=== PATIENT | male | born 1980 | race Two or more races ===

== ENCOUNTER 2021-03-05 09:49 | Emergency (ER) | payer SELFPAY ==
[~2021-03-05] VITALS: Ht 175.3 cm; Wt 86.0 kg
[2021-03-05 10:11] VITALS: BP 122/78
[2021-03-05] MEDS ORDERED: IV NORMAL SALINE 1000ML BAG 1,000 ML IV ONE (11:00)
[2021-03-05] MEDS ORDERED: DIPH,PERTUSS(ACELL),TET VAC/PF 0.5 ML SYRINGE. VAX IM ONE (11:00)
[2021-03-05] MEDS ORDERED: diphenhydrAMINE 50 MG/ML VIAL IVP ONE (11:00)
[2021-03-05] MEDS ORDERED: FAMOTIDINE 20 MG TABLET. PO ONE (11:00)
[2021-03-05] MEDS ORDERED: methylPREDNISolone SOD SUCC PF 125 MG/2 ML VIAL. IV ONE (11:00)
[2021-03-05 12:12] LABS: BASO % 0 % (0-3); EOS # 0.1 x10^3/uL (0.0-0.7); EOS % 1 % (0-3); HEMATOCRIT 43.6 % (39.0-53.0); HEMOGLOBIN 15.3 g/dL (13.0-17.5); LYMPH # 1.9 x10^3/uL (1.0-4.8); LYMPH % 25 % (24-48); MEAN CORPUSCULAR HEMOGLOBIN 31 pg (25-35); MEAN CORPUSCULAR HGB CONC 35 g/dL (31-37); MEAN CORPUSCULAR VOLUME 90 fL (79-100); MONO # 0.7 x10^3/uL (0.0-1.1); MONO % 10 % (0-9); NEUT # 4.9 x10^3/uL (1.8-7.7); NEUT % 64 % (31-73); PLATELET COUNT 197 x10^3/uL (140-400); RED BLOOD COUNT 4.87 x10^6/uL (4.30-5.70); RED CELL DISTRIBUTION WIDTH 12.7 % (11.5-14.5); WHITE BLOOD COUNT 7.6 x10^3/uL (4.0-11.0)
[2021-03-05 12:13] LABS: BILIRUBIN,URINE NEGATIVE (NEG); CLARITY,URINE CLEAR; COLOR,URINE YELLOW; NITRITE,URINE NEGATIVE (NEG); PROTEIN,URINE NEGATIVE (NEG-TRACE)
[2021-03-05 12:21] LABS: CALCIUM 9.2 mg/dL (8.5-10.1); CREATININE 0.9 mg/dL (0.7-1.3); GFR 93.5
[2021-03-05 12:30] LABS: BACTERIA,URINE 0 /HPF (0-FEW); RBC,URINE 0 /HPF (0-2); WBC,URINE 0 /HPF (0-4)
[2021-03-05] MEDS ORDERED: DIPH50CA PO (13:06)
[2021-03-05] MEDS ORDERED: METH4TAB2 PO (13:06)
[2021-03-05] MEDS ORDERED: FAMO-63 PO (13:06)
--- NOTE | 2021-03-05 13:07 | PHYS DOC ---
Past Medical History Past Surgical History: No Surgical History General Adult EDM: Chief Complaint: INSECT BITE HPI: HPI: Patient is a 40 year old male presents to the emergency department complaining of a bee sting to his right forearm while working outside of his home yesterday at approximately 9 AM. Patient states he seen the bee landed on his arm which stung him reporting it was very large but does not know what type. Patient reports it swelled overnight, has been taking Tylenol for the pain. Has not taken any other medications. Patient reports placing Neosporin over the sting site. Patient did not notice a stinger in his arm. Patient reports when he woke up this morning he noticed swelling around the sting site with distal swelling to his hand. Reports a 4 out of 10 pain, states his hand feels stiff but has not lost any sensation. Patient denies fever chills, denies shortness of breath, nausea, vomiting, diarrhea or constipation. Patient denies chest pains. Patient denies any swelling of his face lips or tongue. Patient denies any visual disturbances, diaphoretic episodes. Patient denies any rashes of his skin. Patient states the sting site did turn red. Patient reports that it does itch. Patient reports his last tetanus immunization was greater than 5 years ago. Patient denies any allergies to medications, does not take any prescription medications at home, has not had any surgeries. Patient denies any other physical complaints or physical concerns. Review of Systems: Review of Systems: 14 body systems of review of systems have been reviewed. See HPI for pertinent positives and negative responses, otherwise all other systems are negative, nonpertinent or noncontributory. Constitutional: Negative except as outlined in HPI above. Skin: Negative except as outlined in HPI above. Eyes: Negative except as outlined in HPI above. HENT: Negative except as outlined in HPI above. Respiratory: Negative except as outlined in HPI above. Cardiovascular: Negative except as outlined in HPI above. GI: Negative except as outlined in HPI above. : Negative except as outlined in HPI above. Musculoskeletal: Negative except as outlined in HPI above. Integument: Negative except as outlined in HPI above. Neurologic: Negative except as outlined in HPI above. Endocrine: Negative except as outlined in HPI above. Lymphatic: Negative except as outlined in HPI above. Psychiatric: Negative except as outlined in HPI above. Heart Score: C/O Chest Pain: No Risk Factors: Risk Factors: DM, Current or recent (<one month) smoker, HTN, HLP, family history of CAD, obesity. Risk Scores: Score 0 - 3: 2.5% MACE over next 6 weeks - Discharge Home Score 4 - 6: 20.3% MACE over next 6 weeks - Admit for Clinical Observation Score 7 - 10: 72.7% MACE over next 6 weeks - Early Invasive Strategies Current Medications: Current Medications Medications (Trade) Dose Ordered Sig/Nora Start Time Stop Time Status Last Admin Dose Admin Diphenhydramine HCl (Benadryl) 25 mg 1X ONCE 03/05/21 11:00 03/05/21 11:29 DC 03/05/21 11:46 25 MG Diphtheria/ Tetanus/Acell Pertussis (ADACEL TDap SYRINGE) 0.5 ml ONCE ONCE 03/05/21 11:00 03/05/21 11:29 DC 03/05/21 11:48 0.5 ML Famotidine (Pepcid) 20 mg 1X ONCE 03/05/21 11:00 03/05/21 11:29 DC 03/05/21 11:47 20 MG Methylprednisolone Sodium Succinate (SOLU-Medrol 125MG VIAL) 125 mg 1X ONCE 03/05/21 11:00 03/05/21 11:29 DC 03/05/21 11:46 125 MG Sodium Chloride 1,000 ml @ 1,000 mls/hr 1X ONCE 03/05/21 11:00 03/05/21 11:59 DC 03/05/21 11:48 1,000 MLS/HR Allergies: Allergies: Allergies Coded Allergies Type Severity Reaction Last Updated Verified No Known Drug Allergies 03/05/21 No Physical Exam: PE: Constitutional: Well developed, well nourished, no acute distress, non-toxic appearance. 40-year-old male in no apparent distress. HENT: Normocephalic, atraumatic. No drooling, no trismus, patient speaking in normal voice tones, no angioedema present, no swelling of the oropharynx, no laryngeal edema. Moist mucous membranes. Eyes: Conjunctiva normal, no discharge. Neck: Normal range of motion, no stridor. Cardiovascular: No cyanosis appreciated, distal cap refill less than 2 seconds. Lungs & Thorax: Patient is in no respiratory distress, no audible adventitious lung sounds appreciated. Lung sounds clear to auscultate all lung gallardo. Abdomen: Nontender, no abnormalities noted. Skin: Warm, dry, no erythema, no rash. See extremity note for focused skin examination Back: No tenderness, no deformities. Extremities: No tenderness, no cyanosis, no clubbing, ROM intact, no edema. Except for right upper extremity distal third of dorsal aspect forearm skin surface has a 1/2 cm area of purpuric maculopapular palpable lesion, skin is intact, edematous swelling around the erythema to the dorsal aspect of forearm only with swelling to dorsal aspect hand, no swelling of the digits, full AR OM/PROM of right elbow, wrist, and digits, cap refill less than 2 seconds, 2+ radial and brachial pulse of the right upper extremity. No stinger identified at sting site. No orifice reaction appreciated, no myalgia or joint edema appreciated, no axillary lymphadenopathy appreciated. No loss of sensation around reported sting site for distal to sting site. Neurologic: Alert and oriented X 3, normal motor function, normal sensory function, no focal deficits noted. Psychologic: Affect normal, judgement normal, mood normal. Current Patient Data: Labs: Laboratory Tests Test 03/05/21 11:37 03/05/21 11:43 Urine Collection Type Unknown Urine Color Yellow Urine Clarity Clear Urine pH 6.0 (<5.0-8.0) Urine Specific [place] >=1.030 (1.000-1.030) Urine Protein Negative mg/dL (NEG-TRACE) Urine Glucose (UA) Negative mg/dL (NEG) Urine Ketones (Stick) Negative mg/dL (NEG) Urine Blood Negative (NEG) Urine Nitrite Negative (NEG) Urine Bilirubin Negative (NEG) Urine Urobilinogen Dipstick 1.0 mg/dL (0.2 mg/dL) Urine Leukocyte Esterase Negative (NEG) Urine RBC 0 /HPF (0-2) Urine WBC 0 /HPF (0-4) Urine Bacteria 0 /HPF (0-FEW) Urine Mucus Marked /LPF White Blood Count 7.6 x10^3/uL (4.0-11.0) Red Blood Count 4.87 x10^6/uL (4.30-5.70) Hemoglobin 15.3 g/dL (13.0-17.5) Hematocrit 43.6 % (39.0-53.0) Mean Corpuscular Volume 90 fL (79-100) Mean Corpuscular Hemoglobin 31 pg (25-35) Mean Corpuscular Hemoglobin Concent 35 g/dL (31-37) Red Cell Distribution Width 12.7 % (11.5-14.5) Platelet Count 197 x10^3/uL (140-400) Neutrophils (%) (Auto) 64 % (31-73) Lymphocytes (%) (Auto) 25 % (24-48) Monocytes (%) (Auto) 10 % (0-9) H Eosinophils (%) (Auto) 1 % (0-3) Basophils (%) (Auto) 0 % (0-3) Neutrophils # (Auto) 4.9 x10^3/uL (1.8-7.7) Lymphocytes # (Auto) 1.9 x10^3/uL (1.0-4.8) Monocytes # (Auto) 0.7 x10^3/uL (0.0-1.1) Eosinophils # (Auto) 0.1 x10^3/uL (0.0-0.7) Basophils # (Auto) 0.0 x10^3/uL (0.0-0.2) Sodium Level 139 mmol/L (136-145) Potassium Level 4.0 mmol/L (3.5-5.1) Chloride Level 104 mmol/L (98-107) Carbon Dioxide Level 28 mmol/L (21-32) Anion Gap 7 (6-14) Blood Urea Nitrogen 15 mg/dL (8-26) Creatinine 0.9 mg/dL (0.7-1.3) Estimated GFR (Cockcroft-Gault) 93.5 Glucose Level 109 mg/dL (70-99) H Calcium Level 9.2 mg/dL (8.5-10.1) Laboratory Tests 03/05/21 11:43 Laboratory Tests 03/05/21 11:43 Vital Signs: Vital Signs Date Time Temp Pulse Resp B/P (MAP) Pulse Ox O2 Delivery O2 Flow Rate FiO2 03/05/21 10:11 98.1 70 18 122/78 97 Room Air 98.1 EKG: EKG: [] Radiology/Procedures: Radiology/Procedures: [] Course & Med Decision Making: Course & Med Decision Making Pertinent Labs and Imaging studies reviewed. (See chart for details) 40-year-old male, vital signs reviewed, presents to the emergency department for a painful itching swelling area after being stung by a bee to his right forearm. Physical examination consistent with patient's explanation of events, there are no signs of anaphylaxis. The patient's tetanus immunization was greater than 5 years, will bring up-to-date today with Adacel Tdap. Will start saline lock, 1 L normal saline, IV Benadryl, Pepcid, 125 mg Solu-Medrol, cardiorespiratory monitoring, will reexamine after period of time. After period of time, reevaluation of the patient, patient reports pain relief, states the area on his arm where he was stung no longer itches, patient is hemodynamically intact, no apparent distress, no signs or symptoms of anaphylaxis. No angioedema of the lips face or oral cavity. Patient is speaking in normal voice tones, maintains a 99 to 100% oxygen saturation, is in no respiratory distress. Discussed with patient home care of bee stings, continue to take Benadryl and Pepcid as directed, may use [id number] Tylenol or Motrin for pain pain, prescription for Medrol Dosepak. Return to ER precautions or concerns. Discussed with the patient all findings and diagnostic testing as well as the need to follow-up with their primary care provider for further evaluation and treatment or return to the ED if any new or worsening symptoms. Strict return precautions were also discussed at length, the patient voiced understanding and agreement with the discharge planning. The patient was nontoxic in appearance, in no apparent distress, and hemodynamically stable at the time of disposition. Willem Disclaimer: Willem Disclaimer: This electronic medical record was generated, in whole or in part, using a voice recognition dictation system. Departure Departure Impression: Primary Impression: Bee sting reaction Qualified Codes: T63.444A - Toxic effect of venom of bees, undetermined, initial encounter Disposition: HOME / SELF CARE / HOMELESS Condition: GOOD Referrals: NO PCP (PCP) Patient Instructions: Bee, Wasp, or Hornet Sting Additional Instructions: You were seen today in the emergency department for a bee sting to your right forearm. You were treated today in the emergency department with intravenous Benadryl and Pepcid for itching and swelling, a steroid called Solu-Medrol to help stop any further reaction, a liter of normal saline, your tetanus immunization was brought up-to-date today in the emergency department with a medication called Adacel Tdap, please update your immunization records. Your blood lab work and urinalysis did not show any concerning signs of infection or dehydration. I am prescribing you Benadryl and Pepcid along with a oral steroid, please take as directed. The swelling of your arm may take approximately 2 weeks or so to go back to normal, this is a normal reaction to a localized swelling from a bee sting such as yours. Please return immediately to the emergency department for sudden onset of shortness of breath, throat swelling, facial or lip swelling or tongue swelling, worsening symptoms or other concerns. Follow-up with your primary care doctor for reevaluation of your bee sting. Please keep the area clean and dry with soap and water, you may place [id number] antibiotic ointment as needed. Thank you for visiting our Emergency Department. It was a pleasure taking care of you today in the emergency department and we appreciate you trusting us with your care. If any additional problems come up don't hesitate to return to visit us. Please follow up with your primary care provider so they can plan additional care if needed and know about the problem that you had. If symptoms worsen come back to the Emergency Department. Any concerning symptoms that start such as chest pain, shortness of air, weakness or numbness on one side of the body, running high fevers or any other concerning symptoms return to the ER. EMERGENCY DEPARTMENT GENERAL DISCHARGE INSTRUCTIONS Thank you for coming to [facility] Emergency Department (ED) today and trusting us with you care. We trust that you had a positive experience in our Emergency Department. If you wish to speak to the department management, you may call the Director at [phone]. YOUR FOLLOW UP INSTRUCTIONS ARE FOLLOWS: 1. Do you have a private Doctor? If you do not have a private doctor, please ask for a resource list of physicians or clinics that may be able to assist you with follow up care. 2. The Emergency Physicain has interpreted your x-rays. The X-Ray specialist will also review them. If there is a change in the findings, you will be notified in 48 hours when at all possible. 3. A lab test or culture has been done, your results will be reviewed and you will be notified if you need a change in treatment. ADDITIONAL INSTRUCTIONS AND INFORMATION: 1. Your care today has been supervised by a physician who is specially trained in emergency care. Many problems require more than one evaluation for a complete diagnosis and treatment. We recommend that you schedule your follow up appointment as recommended to ensure complete treatment of you illness or injury. If you are unable to obtain follow up care and continue to have a problem, or if your condition worsens, we recommend that you return to the ED. 2. We are not able to safely determine your condition over the phone nor are we able to give sound medical advice over the phone. For these safety reasons, if you call for medical advice we will ask you to come to the ED for further evaluation. 3. If you have any questions regarding these discharge instructions please call the ED at [phone]. SAFETY INFORMATION: In the interest of safety, wellness, and injury prevention; we encourage you to wear your sealbelt, if you smoke; quite smoking, and we encourage family to use a protective helmet for bicycling and other sporting events that present an increased risk for head injury. IF YOUR SYMPTOMS WORSEN OR NEW SYMPTOMS DEVELOP, OR YOU HAVE CONCERNS ABOUT YOUR CONDITION; OR IF YOUR CONDITION WORSENS WHILE YOU ARE WAITING FOR YOUR FOLLOW UP APPOINTMENT; EITHER CONTACT YOUR PRIMARY CARE DOCTOR, THE PHYSICIAN WHOSE NAME AND NUMBER YOU WERE GIVEN, OR RETURN TO THE ED IMMEDIATELY. Scripts Methylprednisolone (MEDROL) 4 Mg Tab.ds.pk 1 PKG PO UD, #1 PKG 0 Refills Prov: JULITA WALLER APRN 03/05/21 Famotidine (PEPCID) 20 Mg Tablet 20 MG PO BID for bee sting allergy for 15 Days, #30 TAB 0 Refills Prov: JULITA WALLER APRN 03/05/21 Diphenhydramine Hcl (DIPHENHYDRAMINE HCL) 50 Mg Capsule 1 CAP PO PRN Q12HRS PRN for swelling and itching, #30 CAP 0 Refills Prov: JULITA WALLER APRN 03/05/21 JULITA WALLER APRN Mar 05, 2021 13:07
== END 2021-03-05 13:18 | disposition home or self-care (01) ==
LOC: ER 09:49
DX: T63.444A Toxic effect of venom of bees, undetermined, initial encounter (principal); Y92.89 Other specified places as the place of occurrence of the external cause
CPT/HCPCS: 36415; 80048; 81001; 85025; 90471; 90715; 96361; 96374; 96375; 99284; J1200; J2930; J7030